=== PATIENT | female | born 1930 ===

== ENCOUNTER 2020-05-23 10:40 | Day surgery (SDC) | payer MEDICARE, OTHER ==
[~2020-05-23] VITALS: Ht 160 cm; Wt 60.1 kg
[~2020-05-23 10:40] MED LIST: CALCIUM 600 W/V1 TAB PO; FISH OIL1000 MG PO; MULTIVITAMIN FO1 CAP PO; NORCO 325 MG-7.1 TAB PO; PRAVACHOL 40MG40 MG PO; VITAMIN D3400 I1 PO
[2020-05-23] MEDS ORDERED: ALDACTONE50 MG PO (11:27)
[2020-05-23] MEDS ORDERED: ZOLOFT 25MG25 MG PO (11:27)
[2020-05-23] MEDS ORDERED: PRIL40 PO (11:28)
[2020-05-23] MEDS ORDERED: ZOFRAN 4MG T4 MG/TAB PO (11:28)
[2020-05-23 11:35] VITALS: BP 148/91; PULSE 86; TEMP 96.9
[2020-05-23 12:45] VITALS: BP 159/89; PULSE 80; TEMP 97.2
--- NOTE | 2020-05-23 12:45 | NUR ---
Pt to GI bay 4 via cart from [place]. Pt drowsy but awake. Pt ambulates to recliner with stand by assistance. Warm blankets provided. Juice and muffin given per pt request. Daughter in law in room. Will continue to monitor. Call light within reach.
[2020-05-23 13:00] VITALS: BP 173/113; PULSE 83
--- NOTE | 2020-05-23 13:00 | NUR ---
Pt tolerating food and fluids without difficulties. Denies needs. Call light within reach.
[2020-05-23 13:15] VITALS: BP 181/98; PULSE 82
--- NOTE | 2020-05-23 13:15 | NUR ---
Discharge instructions reviewed. Pt and daughter in law voice undestanding. IV site discontinued with all parts intact. Pt up to dress with nurse assistance. Call light within reach.
--- NOTE | 2020-05-23 13:30 | NUR ---
Pt escorted to private car via wheel chair. Pt accompanied home by her family.
== END 2020-05-23 13:30 | disposition home or self-care (01) ==
LOC: SDCO 10:40
DX: D12.2 Benign neoplasm of ascending colon (principal); D12.5 Benign neoplasm of sigmoid colon; K74.60 Unspecified cirrhosis of liver; K92.1 Melena; K59.00 Constipation, unspecified; K52.9 Noninfective gastroenteritis and colitis, unspecified; K63.4 Enteroptosis; Z90.12 Acquired absence of left breast and nipple; Z88.1 Allergy status to other antibiotic agents; K21.9 Gastro-esophageal reflux disease without esophagitis; Z85.828 Personal history of other malignant neoplasm of skin; Z20.828 Contact with and (suspected) exposure to other viral communicable diseases
CPT/HCPCS: J2405; J2704; J7030

== ENCOUNTER 2020-06-29 10:35 | Day surgery (SDC) | payer MEDICARE, OTHER ==
[~2020-06-29] VITALS: Ht 157.5 cm; Wt 55.0 kg
[~2020-06-29 10:35] MED LIST changes: +ALDACTONE50 MG PO; +D3-5050000 IU PO; +LASIX 20MG TABL20 MG PO; +PRIL40 PO; +ZOFRAN 4MG T4 MG/TAB PO; +ZOLOFT 25MG25 MG PO
[2020-06-29] MEDS ORDERED: K-TAB20 PO (11:03)
[2020-06-29] MEDS ORDERED: MIRTAZAPINE7.5 MG PO (11:03)
[2020-06-29] MEDS ORDERED: MELATONIN3 M1 PO (11:04)
[2020-06-29 11:17] VITALS: BP 125/78; PULSE 91; TEMP 97.9
[2020-06-29 13:00] VITALS: BP 136/86; PULSE 89; TEMP 98.3
--- NOTE | 2020-06-29 13:00 | NUR ---
TO BAY 4 PER CART FROM ENDOSCOPY FOLLOWING AN ERCP. ALERT ORIENTED X 3 TALKING WITH DAUGHTER IN LAW AND STAFF. TRANSFERED TO RECLINER WITH ASSIST. RECEIVED SPRTIE. DENIES PAIN OR DISCOMFORT AT CURRENT TIME. DENIES NAUSEA OR VOMITING.
[2020-06-29 13:15] VITALS: BP 143/94; PULSE 86
--- NOTE | 2020-06-29 13:15 | NUR ---
RESTING QUIETLY - TALKING TO DAUGHTER LAW AND SIPPING ON SPRITE.
[2020-06-29 13:30] VITALS: BP 138/85; PULSE 87
--- NOTE | 2020-06-29 13:45 | NUR ---
DR ZELAYA INTO TALK WITH PATIENT DAUGHTER IN LAW AND FAMILY MEMBER ON SPEAKER PHONE.
--- NOTE | 2020-06-29 14:00 | NUR ---
AMBULATED TO BATHROOM WITH ASSIST. VOIDED AND TOLERATED WELL.
--- NOTE | 2020-06-29 14:15 | NUR ---
RECEIVED DISCHARGE INSTRUCTIONS AND VERBALIZED UNDERSTANDING. DISCONTINUED IV AND INT- CATHETER INTACT. DAUGHTER IN LAW ASSISTING PATIENT DRESSED.
--- NOTE | 2020-06-29 14:30 | NUR ---
DISCHARGED PER WC BY NURSING STAFF TO PRIVATE CAR IN CARE OF SON, DAUGHTER IN LAW AND . ABLE TO TRANSFER SELF UP INTO [facility].
== END 2020-06-29 14:55 | disposition home or self-care (01) ==
LOC: SDCO 10:35
DX: K83.1 Obstruction of bile duct (principal); K74.60 Unspecified cirrhosis of liver; R18.8 Other ascites; R63.4 Abnormal weight loss; K21.9 Gastro-esophageal reflux disease without esophagitis; F41.9 Anxiety disorder, unspecified; Z20.828 Contact with and (suspected) exposure to other viral communicable diseases; Z88.1 Allergy status to other antibiotic agents; Z79.899 Other long term (current) drug therapy; Z85.3 Personal history of malignant neoplasm of breast
CPT/HCPCS: C1769; C2625; J2704; J7030; Q9967